=== PATIENT | female | born 1955 ===

== ENCOUNTER 2020-12-25 05:35 | Day surgery (SDC) | payer OTHER ==
[~2020-12-25 05:35] MED LIST: AVALIDE 300-121 EACH PO; METFORMIN HCL1000 M2 PO; TENORMIN25 MG PO
[2020-12-25] MEDS ORDERED: NAPR500T14 PO (11:40)
[2020-12-25] MEDS ORDERED: MORGIDOX100 MG PO (11:40)
== END 2020-12-25 15:45 | disposition home or self-care (01) ==
LOC: CIR.AMB 05:35
PROVIDERS: ATTEND Obstetrics & Gynecology
DX: D25.0 Submucous leiomyoma of uterus (principal); N84.1 Polyp of cervix uteri; Z20.822 Contact with and (suspected) exposure to COVID-19